=== PATIENT | female | born 1995 | race Caucasian/White ===

== ENCOUNTER → 2020-01-26 | Outpatient (REF) | payer MEDICAID ==
[2020-01-26 13:22] LABS: INFLUENZA A AMPLIFICATION POSITIVE (NEGATIVE); INFLUENZA B AMPLIFICATION NEGATIVE (NEGATIVE)
== END ==
LOC: M LAB REF 12:13
PROVIDERS: ATTEND Physician Assistant
DX: J11.1 Influenza due to unidentified influenza virus with other respiratory manifestations (principal)

== ENCOUNTER 2024-10-08 15:38 | Emergency (ER) | payer BC, OTHER ==
[~2024-10-08] VITALS: Ht 182.9 cm; Wt 107.7 kg
[2024-10-08] MEDS: FLUORESCEIN OPHTH 1MG STRIP OS ONE (18:05)
[2024-10-08] MEDS: TETRACAINE 0.5% OPHTH SOLN 4ML OS ONE (18:05)
[2024-10-08] MEDS ORDERED: AMOX875T2 PO (18:40)
[2024-10-08] MEDS ORDERED: ERYT5OIN25 OS (18:40)
[2024-10-08] MEDS: AUGMENTIN 875 MG TAB PO ONE (18:40)
[2024-10-08] MEDS: ERYTHROMYCIN OPHTH OINT OS ONE (18:40)
[2024-10-08 18:45] VITALS: BP 142/88; TEMP 97; O2SAT 97
== END 2024-10-08 18:51 | disposition home or self-care (01) ==
LOC: M ED 15:38
DX: H10.32 Unspecified acute conjunctivitis, left eye (principal); H01.004 Unspecified blepharitis left upper eyelid; Z79.2 Long term (current) use of antibiotics

== ENCOUNTER → 2024-11-03 | Outpatient (REF) ==
[~2024-11-03] MED LIST: AMOX875T2 PO; ERYT5OIN25 OS
== END ==
LOC: M EMP 11:09
PROVIDERS: ATTEND Family Medicine
DX: Z11.52 Encounter for screening for COVID-19 (principal)